=== PATIENT | female | born 2005 | race Hispanic/Latino ===

== ENCOUNTER 2023-03-01 22:03 | Emergency (ER) | payer MEDICAID ==
[~2023-03-01] VITALS: Ht 162.6 cm; Wt 59.0 kg
[2023-03-01 22:29] LABS: APPEARANCE,URINE CLEAR (CLEAR); BILIRUBIN,URINE NEGATIVE (NEGATIVE); COLOR,URINE COLORLESS (YELLOW); GLUCOSE, URINE (UA) NEGATIVE (NEGATIVE); KETONES,URINE NEGATIVE (NEGATIVE); LEUKOCYTE ESTERASE ,URINE NEGATIVE Leu/uL (NEGATIVE); NITRATE,URINE NEGATIVE (NEGATIVE); OCCULT BLOOD,URINE NEGATIVE (NEGATIVE); PROTEIN,URINE NEGATIVE (NEGATIVE); UROBILINOGEN,URINE 0.2 mg/dL (0.2-1.0)
[2023-03-01] MEDS ORDERED: IBUPROFEN 800 MG TAB PO ONE (22:30)
[2023-03-01 22:31] LABS: ADD UA MICROSCOPIC NO
[2023-03-01 22:36] LABS: HCG,QUALITATIVE URINE POSITIVE (NEGATIVE)
[2023-03-01 23:45] VITALS: BP 119/60; PULSE 94; RESP 20; O2SAT 100
== END 2023-03-01 23:55 | disposition home or self-care (01) ==
LOC: EDH 22:03
DX: O26.891 Other specified pregnancy related conditions, first trimester (principal); R10.2 Pelvic and perineal pain; N83.201 Unspecified ovarian cyst, right side; N83.202 Unspecified ovarian cyst, left side; Z98.890 Other specified postprocedural states
CPT/HCPCS: 36415; 81003; 81025; 84702